=== PATIENT | male | born 1970 | race Hispanic/Latino ===

== ENCOUNTER 2025-05-24 06:58 | Day surgery (SDC) | payer BC ==
[2025-05-21 13:53] VITALS: BP 114/68; PULSE 54; RESP 13; TEMP 98.4
[2025-05-21 13:57] LABS: IMMATURE GRANULOCYTE ABSOLUTE 0.04 K/uL (0-1); NUCLEATED RED BLOOD CELLS 0.0 % (0.0-0.19); PLATELET COUNT (AUTO) 182 K/uL (130-400); RED BLOOD CELL COUNT(AUTO) 5.05 MIL/uL (4.50-6.20); RED CELL DISTRIBUTION WIDTH 13.9 % (11.0-15.5); WHITE BLOOD COUNT (AUTO) 8.1 K/uL (4.8-10.8)
[2025-05-21 13:59] LABS: APPEARANCE,URINE CLEAR (CLEAR); GLUCOSE, URINE (UA) NEGATIVE (NEGATIVE); LEUKOCYTE ESTERASE ,URINE NEGATIVE Leu/uL (NEGATIVE); NITRATE,URINE NEGATIVE (NEGATIVE); OCCULT BLOOD,URINE NEGATIVE (NEGATIVE)
[2025-05-21 14:06] LABS: CREATININE 0.8 mg/dL (0.5-1.3); GLOMERULAR FILTR. RATE CALC 104.0 mL/min (>90); GLUCOSE,RANDOM 99.0 mg/dL (70-105); SODIUM SERUM 138.0 mmol/L (136-145); UREA NITROGEN, BLOOD 13.0 mg/dL (7-18)
[2025-05-21 14:07] LABS: ADD UA MICROSCOPIC NO
[2025-05-21 14:15] LABS: INR 1.01 (0.85-1.15)
--- NOTE | 2025-05-22 05:25 | HMCIMG ---
EXAM: CR Chest, 1 view CLINICAL HISTORY: Preoperative evaluation. COMPARISON: None provided. FINDINGS: The lungs show no infiltrates or other acute findings. No pleural effusion or pneumothorax. The cardiomediastinal silhouette is within normal limits. No acute osseous abnormality. IMPRESSION: No acute cardiopulmonary process is evident. /[place]
--- NOTE | 2025-05-22 09:35 | EKG ---
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
[2025-05-24] VITALS (10 sets, daily range): BP systolic 111–128; BP diastolic 65–80; PULSE 60–69; RESP 16–18; TEMP 96.8–97.9
[~2025-05-24] VITALS: Ht 180.3 cm; Wt 105.4 kg
[~2025-05-24 06:58] MED LIST: ASPI-1443 PO; CARV3.12 PO; OMEG100033 PO; ROSU10TA72 PO
[2025-05-24] MEDS: 0.9%NACL 1000ML 1,000 ML IV ONE (07:26)
[2025-05-24] MEDS ORDERED: IOHEXOL 350 MG/ML 100ML INFUS..BTL IV ONE (09:34)
[2025-05-24] MEDS ORDERED: HEParin-NS 1,000 UNIT/500 ML 1,000 ML IV ONE (09:34)
[2025-05-24] MEDS ORDERED: LIDOCAINE HCL 400MG/20ML VIAL ONE (09:34)
[2025-05-24] MEDS ORDERED: NITROGLYCERIN 50MG VIAL ONE (09:35)
[2025-05-24] MEDS ORDERED: MIDAZOLAM HCL 1 MG/ML 2ML VIAL ONE ×3 (09:37→09:54)
[2025-05-24] MEDS ORDERED: SODIUM BICARB 50MEQ 50ML VIAL 50 ML ONE (09:45)
[2025-05-24] MEDS ORDERED: 0.9%NACL 1000ML 1,000 ML IV SCH (11:00)
--- NOTE | 2025-05-24 11:18 | PR ---
PROCEDURE NOTE PROCEDURES: * Left heart catheterization. * Selective right and left coronary arteriogram. * Conscious sedation for 30 minutes. INDICATIONS: * Recurrent symptoms of dyspnea on exertion and history of chest discomfort. * Abnormal Cardiolite. * Hyperlipoproteinemia. COMPLICATIONS: None. TOTAL CONTRAST: Approximately 60 mL. APPROACH: Right radial approach. DESCRIPTION OF PROCEDURE: The patient was taken to the cardiac tutorial laboratory supervisor after appropriate operative consents were signed. After conscious sedation was administered, the right radial artery region was infiltrated with 2% Xylocaine without epinephrine. The right radial artery was then accessed. A 6-[place] slender radial sheath was advanced in a retrograde fashion with a modified Seldinger technique. At this point, a TIG-4 catheter was advanced and placed in the left ventricular cavity. Left ventricular end-diastolic pressure measure was obtained. Ventriculography was deferred. The patient had normal EF by echocardiography. Pull back revealed no aortic stenosis. The patient's right and left coronary arteries were difficult to cannulate with the TIG 4 catheter, so we exchanged over an indwelling wire, utilized an FR3.5, which was easily engaged in the ostium of the right coronary artery. This was imaged in multiplane. This was a very large vessel that gave rise to sinus francisca artery, ____ branch, acute marginals, PDA, and PLVB. The right coronary system was free of disease. Catheter was then withdrawn and FL3.5 catheter was then advanced and easily engaged in the ostium of the left main. Imaging was obtained in multiplane. The left main was a normal vessel that was free of disease. It bifurcated into the LAD and circumflex. LAD was moderately large vessel that gave rise to several large diagonals and septal perforators. The LAD system was free of disease. The circumflex was a moderately sized vessel that gave rise to a small OM1 and a larger OM2. There was a small ongoing circ. There were no significant stenotic lesions in the circ system. At this point, the procedure was completed, the catheter was withdrawn over an indwelling wire. Radial band was applied with good hemostasis. The patient tolerated the procedure well, left the cardiac tutorial laboratory supervisor in stable condition. FINAL IMPRESSION: * Normal coronary arteries. * No . * Normal LV function by noninvasive studies. PLAN: Continue medical management. TID: [id number] RECEIPT: [id number]
== END 2025-05-24 14:32 | disposition home or self-care (01) ==
LOC: DAH 06:58
PROVIDERS: ATTEND Internal Medicine Cardiovascular Disease
DX: R94.39 Abnormal result of other cardiovascular function study (principal); I25.118 Atherosclerotic heart disease of native coronary artery with other forms of angina pectoris; E78.5 Hyperlipidemia, unspecified; R06.02 Shortness of breath; R06.09 Other forms of dyspnea; Z79.899 Other long term (current) drug therapy
CPT/HCPCS: 80048; 83880; 85025; 85610; 85730; 81003; 36415; 71045; 93005; 93458; 99156; 99157 ×2; C1769; A4649; C1894; J3010; J3490 ×4; J7030; J1644 ×2; J2250 ×3; Q9967; A4215; A4222; A4221; A4663; A4216; A4606; Q9965; A4223 ×3